=== PATIENT | male | born 2000 | race Caucasian/White ===

== ENCOUNTER 2025-09-13 16:21 | Inpatient (IN) | payer MEDICAID, SELFPAY ==
--- OUTSIDE RECORDS SUMMARY | 2025-09-11 19:44 | XMS_ITS | Encounter Summary ---
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 Final R esult [facility] [address] [place] [address], documented in this encounter Visit Diagnoses Diagnosis Post traumatic stress disorder (PTSD) [F43.10]- Primary Severe oppositional defiant disorder [F91.3] Suicidal ideation documented in this encounter Care Teams Talend Developer Relationship Specialty Start Date End Date None, Pcp, PCP - General 09/11/25 documented as of this encounter
[2025-09-13 16:35] VITALS: BP 136/88; PULSE 67; RESP 18; TEMP 36.9; O2SAT 98
--- OUTSIDE RECORDS SUMMARY | 2025-09-13 17:03 | XMS_ITS | Encounter Summary ---
Author Organization [facility] Address [address] [place] [address] Care Team Providers Care Light Rail Train Operator Name Role Phone None, Pcp MD Primary Care Provider Unavailabl e Encounter Details Date Type Department Care Team (Latest Contact Info) Description 09/11/2025 Travel Social History Tobacco Use Types Packs/Day Years Used Date Smoking Tobacco: Never Alcohol Use Standard Drinks/Week Comments Yes 0 [...] any time in the past 12 m [facility], were you homeless or living in a longterm (including now)? Patient declined 09/11/2025 [facility] Utilities Answer Date Recorded In the past 12 months has th e electric, gas, oil, or water company threatened to shut off services in your [...] fi le documented as of this encounter Plan of Treatment Not on file documented as of this encounter Visit Diagnoses Not on filedocumented in this encounter Care Teams Light Rail Train Operator Relationship Specialty Start Date End Date None, Pcp, PCP - General 09/11/25 documented as of this encounter
--- OUTSIDE RECORDS SUMMARY | 2025-09-13 17:03 | XMS_ITS | Clinical Summary ---
Author Organization [facility] Address [address] [place] [address] Phone Care Team Providers Care Distillery Worker General Name Role Phone Dori Lewis DO Primary Care Provider [phone]- [phone] Social History Tobacco Use Types Packs/Day Years Used Date Smoking Tobacco: Never Assessed Sex and Gender Information Value Date Recorded Sex Assigned at Not on file Legal Sex Male 7:23 PM EDT Gender Identity Not on file Sexual Orientation Not on file Plan of Treatment Health Maintenance Due Date Last Done Comments MMR Vaccines (1 of 1 - Stand ubaldo series) 2002 Varicella Vaccines (1 of 2 - 13+ 2-dose series) 2014 HPV Vaccines (1 - Male 3-dos e series) 2016 DTaP,Tdap,and Td Vaccines (1 - Tdap) 2019 Hepatitis B Vaccines (1 of 3 - 19+ 3-dose series) 2020 Influenza Vaccines (#1) 2025 COVID-19 Vaccine (1 - 2024-2 6 season) 2025 HIB Vaccines Aged Out No longer eligi ble based on patient's age to complete this topic Hepatitis A Vaccines Aged Out No long er eligible based on patient's age to complete this topic IPV Vaccines Aged Out No longer eligi ble based on patient's age to complete this topic Men B Vaccine Aged Out No longer elig ible based on patient's age to complete this topic Meningococcal Vaccine Aged Out No tanya jailyn eligible based on patient's age to complete this topic Pneumococcal Vaccine Aged Out No long er eligible based on patient's age to complete this topic Insurance [facility] [employer] [employer] Care Teams Distillery Worker General Relationship Specialty Start Date End Date Dori Lewis DO PCP - General 11/10/17
--- OUTSIDE RECORDS SUMMARY | 2025-09-13 17:03 | XMS_ITS | Clinical Summary ---
Author Organization [facility] Address [address] [place], [place] [id number] Care Team Providers Care Slusher Operator Name Role Phone None, Pcp Primary Care Provider Unavailabl e Allergies No known active allergies Medications No known medications Encounters Date Type Department Care Team Description 09/11/2025 7:44 PM EST - 09/13/2025 2:00 PM EST Hospital Encounter [facility] Emergency Department [address] [place] [address] Cherelle Wright MD Treut, Peter W, MD Stonely, Wesley, MD Gacioch, MD Kun Cruz Scott, MD Post traumatic stress disorder (PTSD) [F43.10] (Primary Dx); Severe oppositional defiant disorder [F91.3]; Suicidal ideation Discharge Disposition: Psych[facility] Hospital 09/11/2025 Travel from Last 3 Months Family History Relation Status Comments Father Alive Mother Alive Social History Tobacco Use Types Packs/Day Years [...] any time in the past 12 m [facility], were you homeless or living in a long-term (including now)? Patient declined 09/11/2025 [facility] Utilities Answer Date Recorded In the [...] Not on file Not on fi le Last Filed Vital Signs Vital Sign Reading [...] Mass Index 27.37 09/11/2025 7:55 PM EST Plan of Treatment Health Maintenance Due Date Last Done Comments Depression Screening 2013 Hepatitis C Screening 2019 DTaP,Tdap,and Td Vaccines (1 - Tdap) 2020 COVID-19 Vaccine (1 - 2024-2 6 season) 2025 Influenza Vaccine (#1) 2025 Blood Pressure 09/13/2029 09/13/2025 Meningococcal B Vaccines Aged Out No longer eligible based on patient's age to complete this topic Meningococcal Vaccines Aged Out No lo nger eligible based on patient's age to complete this topic Pneumococcal Vaccine Aged Out No long er eligible based on patient's age to complete this topic Procedures Procedure Name Priority Date/Time Associated Diagnosis Comments ECG 12-LEAD STAT 09/13/2025 11:08 AM EST DRUG SCREEN, URINE STAT 09/12/2025 12 :46 PM EST CBC AND DIFFERENTIAL STAT 09/11/2025 8:43 PM EST CBC AND DIFFERENTIAL STAT 09/11/2025 8:43 PM EST TOXICOLOGY SCREEN, BLOOD STAT 09/11/2025 8:43 PM EST COMPREHENSIVE METABOLIC PANEL STAT 09/11/2025 8:43 PM EST from Last 3 Months Results * ECG 12 lead, to be obtained, other indication (09/13/2025 11:08 AM EST) Ventricular Heart Rate 57 BPM EKG BUR MUSE CA Interval 164 ms EKG BUR MUSE QRSD Interval 106 ms EKG B[facility] MUSE QT Interval 394 ms EKG B[facility] MUSE QTC Interval 387 ms EKG BUR MUSE P [place] 43 degrees EKG BUR MUSE R [place] 47 degrees EKG BUR MUSE T Wave [place] 44 degrees EKG BUR MUSE 09/13/2025 11:0 7 AM EST 09/13/2025 12:57 PM EST Narrative EKG BUR MUSE - 09/13/2025 12:57 PM EST SINUS BRADYCARDIA WITH SINUS ARRHYTHMIA BORDERLINE ECG Confirmed by Crispin Rausch ([id number]) on 09/13/2025 12:57:34 PM Procedure Note Crispin Rausch MD - 09/13/2025 SINUS BRADYCARDIA WITH SINUS ARRHYTHMIA BORDERLINE ECG Confirmed by Crispin Rausch ([id number]) on 09/13/2025 12:57:34 PM Yrn Nguyen MD ECG ORDERABLES Final Result EKG BUR MUSE [address] [place] [id number] * (ABNORMAL) Drug Screen, Urine (09/12/2025 12:46 PM EST) Pathologist [facility] Amphetamine Screen, Urine Negative Negative 09/12/2025 1:25 PM EST [facility] Barbiturate Screen, Urine Negative Negative 09/12/2025 1:25 PM EST [facility] Benzodiazepine Screen, Urine Negative Negative 09/12/2025 1:25 PM EST [facility] Buprenorphine Screen, Urine Negative Negative 09/12/2025 1:25 PM [facility] Cannabinoid Screen, Urine Negative Negative 09/12/2025 1:25 PM [facility] Cocaine Metabolite Screen, Urine Positive(A) Negative 09/12/2025 1:25 PM [facility] Fentanyl Screen, Urine Negative Negative 09/12/2025 1:25 PM [facility] Methadone Screen, Urine Negative Negative 09/12/2025 1:25 PM [facility] Opiates Screen, Urine Negative Negative 09/12/2025 1:25 PM [facility] Oxycodone Screen, Urine Negative Negative 09/12/2025 1:25 PM [facility] Propoxyphene Screen, Urine Negative Negative 09/12/2025 1:25 PM [facility] Tricyclics Screen Negative Negative 025 1:25 PM [facility] Comment 09/12/2025 1:25 PM [facility] Comment: The cut-off concentration [...] 12:46 PM EST 09/12/2025 12:49 PM EST us Cherelle Wright MD URINE ORDERABLES Final Resul t [facility] [address] [place] [id number], * CBC and Differential (09/11/2025 8:43 PM EST) WBC 8.16 3.90 - 10.80 K/uL 09/11/2025 8:53 PM [facility] RBC 5.67 4.42 - 5.73 M/uL 09/11/2025 8:53 PM [facility] Hemoglobin 17.0 14.0 - 17.3 g/dL 09/11/2025 8:53 PM [facility] Hematocrit 47.3 40.1 - 51.0 % 09/11/2025 8:53 PM [facility] MCH 30.0 25.6 - 32.2 pg 09/11/2025 8:53 PM [facility] MCHC 35.9 32.0 - 36.0 g/dL 09/11/2025 8:53 PM [facility] MCV 83 83 - 96 fL 09/11/2025 8:53 PM [facility] RDW 11.9 11.5 - 14.0 % 09/11/2025 8:53 PM [facility] Platelet Count 312 154 - 369 K/uL 09/11/2025 8:53 PM [facility] Neutrophil 55.7 % 09/11/2025 8:53 PM [facility] Lymphocyte 28.4 % 09/11/2025 8:53 PM [facility] Monocyte 8.1 % 09/11/2025 8:53 PM [facility] Eosinophil 7.1 % 09/11/2025 8:53 PM [facility] Basophil 0.5 % 09/11/2025 8:53 PM [facility] Immature Granulocyte ([place], Myelo, Promyelocyte) 0.2 % 09/11/2025 8:53 PM [facility] Absolute Neutrophil Count 4.54 1.68 - 7.99 K/uL 09/11/2025 8:53 PM [facility] Absolute Immature Granulocyte ([place], Myelo, Promyelocyte) 0.02 0.00 - 0.09 K/uL 09/11/2025 8:53 PM [facility] Absolute Lymphocyte Count 2.32 0.66 - 4.75 K/uL 09/11/2025 8:53 PM [facility] Absolute Monocyte Count 0.66 0.16 - 1.40 K/uL 09/11/2025 8:53 PM [facility] Absolute Eosinophil Count 0.58 0.00 - 0.60 K/uL 09/11/2025 8:53 PM [facility] Absolute Basophil Count 0.04 0.00 - 0.32 K/uL 09/11/2025 8:53 PM [facility] Blood PERIPHERAL BLOOD SPECIMEN / Unknown Venipuncture / Unknown 09/11/2025 8:43 PM EST 09/11/2025 8:51 PM EST Cherelle Wright MD LAB BLOOD ORDERABLES Final R esult Performing Organization Address [facility]/ZIP Co de Phone Number [facility] [address] [place] [phone], [place] * (ABNORMAL) Toxicology Screen, Blood (09/11/2025 8:43 PM EST) Pathologist [facility] Acetaminophen Result,Blood <5(L) 10 - 30 ug/mL 09/11/2025 9:20 PM [facility] Alcohol <10 <10 mg/dL 09/11/2025 9:20 PM [facility] Salicylate Level, Blood <1 <30 mg/dL 09/11/2025 9:20 PM [facility] Blood PERIPHERAL BLOOD SPECIMEN / Unknown Venipuncture / Unknown 09/11/2025 8:43 PM EST 09/11/2025 8:51 PM EST Cherelle Wright MD LAB BLOOD ORDERABLES Final R [facility] Performing Organization Address [facility] Co de Phone Number [facility] [address] [place] [phone], [place] * (ABNORMAL) Comprehensive Metabolic Panel (09/11/2025 8:43 PM EST) Sodium 139 135 - 146 mmol/L 09/11/2025 9:11 PM [facility] Potassium 3.9 3.4 - 5.2 mmol/L 09/11/2025 9:11 PM [facility] Comment:Samples tested in se [place] may exhibit a higher potassium value than those tested on plasma. Our current range is based on plasma testing. Chloride 102 98 - 110 mmol/L 09/11/2025 9:11 PM [facility] Total CO2/Bicarbonate 27 24 - 32 mmol/L 09/11/2025 9:11 PM [facility] Anion Gap 11 2 - 15 mmol/L 09/11/2025 9:11 PM [facility] BUN 12 7 - 24 mg/dL 09/11/2025 9:11 PM [facility] Creatinine, Blood 0.90 0.60 - 1.30 mg/dL 09/11/2025 9:11 PM [facility] Glucose, Blood 113(H) 50 - 100 mg/dL 09/11/2025 9:11 PM [facility] Calcium 9.4 8.5 - 10.5 mg/dL 09/11/2025 9:11 PM [facility] Total Protein 7.4 6.2 - 8.2 g/dL 09/11/2025 9:11 PM [facility] Albumin, Blood 4.7 3.4 - 5.2 g/dL 09/11/2025 9:11 PM [facility] AST (SGOT) 17 11 - 40 U/L 09/11/2025 9:11 PM [facility] ALT (SGPT) 23 7 - 40 U/L 09/11/2025 9:11 PM [facility] Alkaline Phosphatase 70 40 - 130 U/L 09/11/2025 9:11 PM [facility] Total Bilirubin 0.7 0.2 - 1.2 mg/dL 09/11/2025 9:11 PM [facility] Estimated GFR(CKD-EPI) 122 mL/min/BSA 09/11/2025 9:11 PM [facility] Blood PERIPHERAL BLOOD SPECIMEN / Unknown Venipuncture / Unknown 09/11/2025 8:43 PM EST 09/11/2025 8:51 PM EST us Cherelle Wright MD LAB BLOOD ORDERABLES Final R esult [facility] [address] [place] [address], [place] from Last 3 Months Care Teams Slusher Operator Relationship Specialty Start Date End Date None, PcpMD PCP - General 09/11/25
[2025-09-13 18:11] VITALS: BMI 26.4
[2025-09-13 20:00] VITALS: RESP 18
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
[2025-09-14 08:00] VITALS: BP 123/93; PULSE 63; RESP 18; TEMP 36.8; O2SAT 100
[2025-09-14 08:37] LABS: Alanine Aminotransferase 24 U/L (0-40); Albumin Level 4.8 g/dL (3.5-5.0); Alkaline Phosphatase 65 U/L (39-117); Anion Gap 13 (12-20); Aspartate Amino Transferase 19 U/L (5-37); Blood Urea Nitrogen 10 mg/dL (9-16); Calcium 9.6 mg/dL (8.4-10.2); Carbon Dioxide 28 mmol/L (22-29); Chloride 106 mmol/L (96-108); Cholesterol 157 mg/dL (<200); Creatinine Clr Calc Pharmacy 104.4; Estimated Glomerular Filt Rate > 60; HDL Cholesterol 54 mg/dL (>40); Magnesium 2.3 mg/dL (1.6-2.6); Potassium 4.5 mmol/L (3.3-5.1); Sodium 142 mmol/L (135-145); Total Protein 7.3 g/dL (6.5-8.0); Triglycerides 118 mg/dL (<150)
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
[2025-09-14 08:52] LABS: Free T4 (Free Thyroxine) 1.26 ng/dL (0.71-1.85)
[2025-09-14 09:05] LABS: Folate 8.5 ng/mL (> or = 4.0); Vitamin B12 561 pg/mL (200-900)
--- NOTE | 2025-09-14 10:25 | HO.PSYADMNOT ---
HPI Date of Service: 09/14/25 Chief Complaint: PTSD, polysubstance abuse alcohol,cocaine,cannabis Sources of Information: patient interviewed and chart reviewed HPI Subjective Notes: [place] Warning and Conditional Voluntary Healthcare Proxy: No Guardianship: No Medical Problems Affecting Mental Status: No Narrative: Patient is a 25-year-old male who was sectioned 12B from [facility] yesterday for suicide ideation. On interview with his provider, patient states that on 09/11/2025 she was sitting in the car while her girlfriend was driving and he noticed new and old cutting kemp to her forearm. He mentioned what he noticed to his girlfriend as she has history of mental illness with self-injurious behaviors. She became irritable and started driving erratically. He cracked his the open so she can slow down the car for him to come out. She pulled over in the parking lot and as they were talking, he found that she had an affair with another individual. Therefore, he told her he will walk away from the relationship. His girlfriend immediately called the police and told them the patient tried to commit suicide by opening his door while she was driving. The police also found out the patient failed to appear in court for a misdemeanor charge for a stolen property. The patient denies psychiatric or medical history. He denies history of taking psychotropic medications. He states that his sleep and appetite is usually adequate. He currently denies anxiety or depression. He denies SI/HI/AVH. He has been using cocaine intranasally once a month for the past 1-2 years. He drinks 1-2 beers every other weekend. He denies caffeine intake. He denies other drug use. Tox screen positive for cocaine. His goal for this admission is to get out and continue with my life. Patient seen today 08:45. Past Psychiatric History: Denies h/o mental illness or IPLOC. Denies h/o taking psychotropic medications. Denies h/o SIB or SA. No PCP. Medical Evaluation Reviewed: Yes Diagnostics Vital Signs (24Hr): Vital Signs - 24 hr 09/13/25 16:35 09/13/25 20:00 Temperature 98.4 F Pulse Rate 67 Respiratory Rate 18 18 Blood Pressure 136/88 Pulse Oximetry 98 Oxygen Delivery Method Room Air BMI result Body Mass Index 26.4 Labs 09/14/25 08:03 Labs: Laboratory Results - last 48 hr 09/14/25 08:03 Sodium 142 Potassium 4.5 Chloride 106 Carbon Dioxide 28 Anion Gap 13 BUN 10 Creatinine 1.02 Estim Creat Clear Calc 104.4 Estimated GFR > 60 Random Glucose 92 Estimat Average Glucose 91 Hemoglobin A1c % 4.8 Calcium 9.6 Magnesium 2.3 Total Bilirubin 0.8 AST 19 ALT 24 Alkaline Phosphatase 65 Total Protein 7.3 Albumin 4.8 Triglycerides 118 Cholesterol 157 LDL Cholesterol, Calc 80 HDL Cholesterol 54 Vitamin B12 561 Folate 8.5 Free T4 1.26 Meds/Allergies Allergies Allergies Allergy/AdvReac Type Severity Reaction Status Date / Time No Known Allergies Allergy Verified 09/13/25 17:46 Mental Status Exam Mental Status Exam Narrative: Appearance: Casually dressed, adequate hygiene and grooming Behavior: Calm and cooperative throughout the interview. Eye contact is appropriate, and there are no signs of psychomotor agitation or retardation Speech: Normal volume and prosody Thought process: Logical and goal-directed Thought content: Future oriented no self-harming thoughts Mood: Euthymic Affect: Mood-congruent, constricted SI: Denies HI: Denies VH/AH: None Delusions: None Insight/judgment: Impaired insight and judgment Memory/cog: Alert, oriented x 4. grossly intact to conversational testing Assessment & Plan Assessment & Plan (1) Anxiety: Status: Acute Code(s): F41.9 - Anxiety disorder, unspecified (2) Suicide ideation: Status: Acute Code(s): R45.851 - Suicidal ideations Plan Patient is a 25-year-old male who was sectioned 12B from [facility] yesterday for suicide ideation. On interview with his provider, patient states that on 09/11/2025 she was sitting in the car while her girlfriend was driving and he noticed new and old cutting kemp to her forearm. He mentioned what he noticed to his girlfriend as she has history of mental illness with self-injurious behaviors. She became irritable and started driving erratically. He cracked his the open so she can slow down the car for him to come out. She pulled over in the parking lot and as they were talking, he found that she had an affair with another individual. Therefore, he told her he will walk away from the relationship. His girlfriend immediately called the police and told them the patient tried to commit suicide by opening his door while she was driving. The police also found out the patient failed to appear in court for a misdemeanor charge for a stolen property. The patient denies psychiatric or medical history. He denies history of taking psychotropic medications. He states that his sleep and appetite is usually adequate. He currently denies anxiety or depression. He denies SI/HI/AVH. He has been using cocaine intranasally once a month for the past 1-2 years. He drinks 1-2 beers every other weekend. He denies caffeine intake. He denies other drug use. He is not interested in taking medications. Tox screen positive for cocaine. His goal for this admission is to get out and continue with my life. Formulation/Clinical reasoning: Anxiety and cocaine use disorder: Cocaine use may result in anxiety and suicide ideation. No current SI/HI/AVH. Patient is not interested in medication treatment at this time. Encouraged to take medications as needed. Addiction consult in place. Verbalized understanding and agreed with the plan. Plan Admit to M5. CV 15 minutes check. Diagnostics as needed. Collateral contact. Continue remainder of regime. Encouraged full milieu. Discharge planning. Patient educated on: diagnosis, medication risk/benefits and therapeutic strategies Reason for continued inpatient stay Substantial Risk for: harm to self and rapid decompensation Statement Statement: I have reviewed the history and physical and performed a pertinent examination on my patient. No changes have occurred unless specified. If the History and Physical was not performed prior to admission, the Hospitalist's service will be consulted for completing the admission physical. Time Spent With Patient Time: Total time managing care of this patient today ____ minutes.
--- NOTE | 2025-09-14 16:48 | MHC.RECOVRN ---
Consult placed to Addiction Medicine for pt with reported recreational cocaine use.? Pt states he uses cocaine ?maybe once a month if that?.He also reports drinking alcohol ?mainly on the weekend and like a beer or two?. He denies his alcohol and cocaine use are problematic or the need for support or resources regarding his use.? Pt was educated on the current drug supply, cutting agents used, and was provided some safer use strategies to minimize his risk if use continues.? Pt states he has a friend that works at ?[employer]? and states he will be attending their evening program once he is discharged from ?to learn better coping skills?? Pt denied questions or concerns and was provided contact information for ACS Team if needed.?
[2025-09-14 19:50] VITALS: BP 142/83; PULSE 103; RESP 16; TEMP 37.1; O2SAT 99
--- NOTE | 2025-09-14 21:26 | PC.NURSE ---
Pt submitted a Three Day Notice on Friday09/14/2025 up on Friday09/20/2025.
[2025-09-15 08:00] VITALS: BP 129/84; PULSE 82; RESP 16; TEMP 36.8; O2SAT 99
--- NOTE | 2025-09-15 15:24 | P.PNPSI_ITS ---
Subjective Subjective Date of Service: 09/15/25 Reason For Visit: PTSD, polysubstance abuse alcohol,cocaine,cannabis Subjective Notes: 3 Day Healthcare Proxy: No Guardianship: No Medical Problems Affecting Mental Status: No Interim History: Medical record and nursing notes reviewed; case discussed during rounds with team/nursing staff, and met with patient for supportive therapy/psychoeducation, as well as medication management. Patient mostly isolated in room, out to making phone call, has no scheduled meds as patient is not interesting taking meds. Patient asks if he can be discharged tomorrow. Will discuss with team in the AM. He has a 3-day notice. No behavior. Denies SI/SIB/HI/AVH. Medication Compliance: No (N/A. NSM) Attending Groups: No Review of Systems Acute medical concerns: No Medical Review of Systems: unchanged Review of Systems Review of Systems Constitutional: Denies fatigue and Denies fever(s) Cardiovascular: Denies chest pain and Denies dyspnea Respiratory: Denies dyspnea Gastrointestinal: Denies abdominal pain Psychiatric: denies suicidal ideation Endocrine: Denies fatigue Mental Status Exam Mental Status Exam Narrative: Appearance: Casually dressed, adequate hygiene and grooming Behavior: Calm and cooperative throughout the interview but isolated to self. Eye contact is appropriate, and there are no signs of psychomotor agitation or retardation Speech: Normal volume and prosody Thought process: Logical and goal-directed Thought content: Future oriented no self-harming thoughts Mood: Euthymic Affect: Mood-congruent, constricted SI: Denies HI: Denies VH/AH: None Delusions: None Insight/judgment: improved insight and judgment Memory/cog: Alert, oriented x 4. grossly intact to conversational testing Diagnostics Vital Signs (24Hr): Vital Signs - 24 hr 09/14/25 19:50 09/15/25 08:00 Temperature 98.8 F 98.2 F Pulse Rate 103 H 82 Respiratory Rate 16 16 Blood Pressure 142/83 H 129/84 Pulse Oximetry 99 99 Oxygen Delivery Method Room Air Room Air BMI result Body Mass Index 26.4 Labs 09/14/25 08:03 Labs: Laboratory Results - last 48 hr 09/14/25 08:03 Sodium 142 Potassium 4.5 Chloride 106 Carbon Dioxide 28 Anion Gap 13 BUN 10 Creatinine 1.02 Estim Creat Clear Calc 104.4 Estimated GFR > 60 Random Glucose 92 Estimat Average Glucose 91 Hemoglobin A1c % 4.8 Calcium 9.6 Magnesium 2.3 Total Bilirubin 0.8 AST 19 ALT 24 Alkaline Phosphatase 65 Total Protein 7.3 Albumin 4.8 Triglycerides 118 Cholesterol 157 LDL Cholesterol, Calc 80 HDL Cholesterol 54 Vitamin B12 561 Folate 8.5 Free T4 1.26 Medications Medications Current Medications Acetaminophen (Acetaminophen 325 Mg Tablet) 650 mg PO Q6H PRN PRN Reason: Headache/Pain, Scale 1-10 Al Hydroxide/Mg Hydroxide (Magnesium Hydrox/Alum Hydrox 30 Ml Oral.Susp) 30 ml PO Q6H PRN PRN Reason: Heartburn/Nausea Hydroxyzine HCl (Hydroxyzine Hcl 25 Mg Tablet) 25 mg PO Q6H PRN PRN Reason: mild anxiety Last Admin: 09/13/25 18:09 Dose: 25 mg Magnesium Hydroxide (Milk Of Magnesia 30 Ml Oral.Susp) 30 ml PO DAILY PRN PRN Reason: Constipation Nicotine Polacrilex (Nicotine Polacrilex 2 Mg Gum) 4 mg BUCCAL Q2H PRN PRN Reason: Nicotine Cravings Trazodone HCl (Trazodone Hcl 50 Mg Tablet) 50 mg PO BEDTIME MRX1 PRN PRN Reason: Insomnia Allergies Allergies Allergy/AdvReac Type Severity Reaction Status Date / Time No Known Allergies Allergy Verified 09/13/25 17:46 Assessment & Plan Assessment & Plan (1) Anxiety: Status: Acute Code(s): F41.9 - Anxiety disorder, unspecified (2) Suicide ideation: Status: Acute Code(s): R45.851 - Suicidal ideations Plan Patient is a 25-year-old male who was sectioned 12B from [facility] yesterday for suicide ideation. On interview with his provider, patient states that on 09/11/2025 she was sitting in the car while her girlfriend was driving and he noticed new and old cutting kemp to her forearm. He mentioned what he noticed to his girlfriend as she has history of mental illness with self-injurious behaviors. She became irritable and started driving erratically. He cracked his the open so she can slow down the car for him to come out. She pulled over in the parking lot and as they were talking, he found that she had an affair with another individual. Therefore, he told her he will walk away from the relationship. His girlfriend immediately called the police and told them the patient tried to commit suicide by opening his door while she was driving. The police also found out the patient failed to appear in court for a misdemeanor charge for a stolen property. The patient denies psychiatric or medical history. He denies history of taking psychotropic medications. He states that his sleep and appetite is usually adequate. He currently denies anxiety or depression. He denies SI/HI/AVH. He has been using cocaine intranasally once a month for the past 1-2 years. He drinks 1-2 beers every other weekend. He denies caffeine intake. He denies other drug use. He is not interested in taking medications. Tox screen positive for cocaine. His goal for this admission is to get out and continue with my life. Formulation/Clinical reasoning: Anxiety and cocaine use disorder: Cocaine use may result in anxiety and suicide ideation. No current SI/HI/AVH. Patient is not interested in medication treatment at this time. Encouraged to take medications as needed. Addiction consult in place. Verbalized understanding and agreed with the plan. 09/15/25: Patient mostly isolated in room, out to making phone call, has no scheduled meds as patient is not interesting taking meds. Patient asks if he can be discharged tomorrow. Will discuss with team in the AM. He has a 3-day notice. No behavior. Denies SI/SIB/HI/AVH. Plan Admit to M5. 3-day notice. 15 minutes check. Diagnostics as needed. Collateral contact. Continue remainder of regime: PRN only. Encouraged full milieu. Discharge planning. Patient educated on: diagnosis, medication risk/benefits and therapeutic strategies Informed Consent: understands and further education needed Reason for continued inpatient stay Substantial Risk for: med/psych decompensation Time Spent With Patient Time: Total time managing care of this patient today ____ minutes.
[2025-09-15 20:00] VITALS: BP 118/73; PULSE 86; RESP 20; TEMP 37.2; O2SAT 98
[2025-09-16 08:00] VITALS: BP 112/60; PULSE 57; RESP 18; TEMP 36.5; O2SAT 98
--- NOTE | 2025-09-16 09:26 | P.PNPSI_ITS ---
Subjective Subjective Date of Service: 09/16/25 Reason For Visit: PTSD, polysubstance abuse alcohol,cocaine,cannabis Interim History: Met with patient; discussed with team; reviewed chart Patient remains in good behavioral and impulse control, polite and appropriate with peers and with this keno writer / runner. Patient maintains that he was never suicidal and never has been throughout his life. He reiterates that his girlfriend made up a lot of stuff because they have problems in their relationship and she has reactive. She was going to come visit him today but he asked her not to. Patient remains not wanting any medication or any treatment of any kind but just wants to discharge. Patient acknowledges that he is made plenty of bad choices in his life and that he struggles with impulsivity but reiterates he would never hurt himself and has never wanted to in his life. Regarding substance abuse he says he is interested in a AA/NA program at [facility]. Patient has a 3 day notice. Patient says that his long-time family friend, mother darnell Srivastava is willing to pick him up if he can be discharged today which he is asking for. Patient says he has animals at home that need attending. Senior Foreman spoke with patient's mom Jessenia who shared that patient has a lifetime of getting into trouble including crimes and says is a warrant out for his arrest; she says she has no idea when he is telling the truth and does not try to figure out anymore and while she loves him, at this point he is not allowed in their home. However she also shared that she has never known him to be a danger to himself or others that he has never hurt anyone to her knowledge and has never ever been suicidal. She says she thinks he is narcissistic has always thought very highly of himself which she thinks is quite protective factor and part of the reason he never has any self-harm. She wishes he would get help but says he never seems to be willing. She concurs that he has pets at home that need taking care of. Mental Status Exam Mental Status Exam Narrative: Pt is alert and oriented; behavior is cooperative, polite and calm; patient is not in distress; dressed in hospital attire with adequate hygiene; mood is described as good and affect congruent; eye contact appropriate; Speech is normal rate, volume and prosody and not pressured; no psychomotor agitation/retardation present; thought process is organized and goal directed; Thought content is on tx; otherwise pertinent to relevant topics and without any delusional content, paranoid ideations or grandiosity; denies any SI/HI. Denies AVH and there is no evidence of perceptual disturbance. Patients insight and judgment appear intact. Diagnostics Vital Signs (24Hr): Vital Signs - 24 hr 09/15/25 20:00 09/16/25 08:00 Temperature 99 F 97.7 F Pulse Rate 86 57 Respiratory Rate 20 18 Blood Pressure 118/73 112/60 Pulse Oximetry 98 98 Oxygen Delivery Method Room Air Room Air BMI result Body Mass Index 26.4 Labs 09/14/25 08:03 Medications Medications Current Medications Acetaminophen (Acetaminophen 325 Mg Tablet) 650 mg PO Q6H PRN PRN Reason: Headache/Pain, Scale 1-10 Al Hydroxide/Mg Hydroxide (Magnesium Hydrox/Alum Hydrox 30 Ml Oral.Susp) 30 ml PO Q6H PRN PRN Reason: Heartburn/Nausea Hydroxyzine HCl (Hydroxyzine Hcl 25 Mg Tablet) 25 mg PO Q6H PRN PRN Reason: mild anxiety Last Admin: 09/13/25 18:09 Dose: 25 mg Magnesium Hydroxide (Milk Of Magnesia 30 Ml Oral.Susp) 30 ml PO DAILY PRN PRN Reason: Constipation Nicotine Polacrilex (Nicotine Polacrilex 2 Mg Gum) 4 mg BUCCAL Q2H PRN PRN Reason: Nicotine Cravings Trazodone HCl (Trazodone Hcl 50 Mg Tablet) 50 mg PO BEDTIME MRX1 PRN PRN Reason: Insomnia Last Admin: 09/15/25 22:41 Dose: 50 mg Allergies Allergies Allergy/AdvReac Type Severity Reaction Status Date / Time No Known Allergies Allergy Verified 09/13/25 17:46 Assessment & Plan Assessment & Plan (1) Adjustment disorder with mixed disturbance of emotions and conduct in remission: Status: Acute Code(s): F43.25 - Adjustment disorder with mixed disturbance of emotions and conduct (2) Antisocial personality disorder: Status: Acute Code(s): F60.2 - Antisocial personality disorder (3) Cocaine use disorder: Status: Acute Code(s): F14.90 - Cocaine use, unspecified, uncomplicated Plan Patient is a 25-year-old male who was sectioned 12B from [facility] yesterday for suicide ideation. On interview with his provider, patient states that on 09/11/2025 she was sitting in the car while her girlfriend was driving and he noticed new and old cutting kemp to her forearm. He mentioned what he noticed to his girlfriend as she has history of mental illness with self-injurious behaviors. She became irritable and started driving erratically. He cracked his the open so she can slow down the car for him to come out. She pulled over in the parking lot and as they were talking, he found that she had an affair with another individual. Therefore, he told her he will walk away from the relationship. His girlfriend immediately called the police and told them the patient tried to commit suicide by opening his door while she was driving. The police also found out the patient failed to appear in court for a misdemeanor charge for a stolen property. The patient denies psychiatric or medical history. He denies history of taking psychotropic medications. He states that his sleep and appetite is usually adequate. He currently denies anxiety or depression. He denies SI/HI/AVH. He has been using cocaine intranasally once a month for the past 1-2 years. He drinks 1-2 beers every other weekend. He denies caffeine intake. He denies other drug use. He is not interested in taking medications. Tox screen positive for cocaine. His goal for this admission is to get out and continue with my life. Formulation/Clinical reasoning: Anxiety and cocaine use disorder: Cocaine use may result in anxiety and suicide ideation. No current SI/HI/AVH. Patient is not interested in medication treatment at this time. Encouraged to take medications as needed. Addiction consult in place. Verbalized understanding and agreed with the plan. 09/15/25: Patient mostly isolated in room, out to making phone call, has no scheduled meds as patient is not interesting taking meds. Patient asks if he can be discharged tomorrow. Will discuss with team in the AM. He has a 3-day notice. No behavior. Denies SI/SIB/HI/AVH. 09/16 Patient remains in good behavioral and impulse control, polite and appropriate with peers and with this keno writer / runner. Patient maintains that he was never suicidal and never has been throughout his life. He reiterates that his girlfriend made up a lot of stuff because they have problems in their relationship and she has reactive. She was going to come visit him today but he asked her not to. Patient remains not wanting any medication or any treatment of any kind but just wants to discharge. Patient acknowledges that he is made plenty of bad choices in his life and that he struggles with impulsivity but reiterates he would never hurt himself and has never wanted to in his life. Regarding substance abuse he says he is interested in a AA/NA program at [facility]. Patient has a 3 day notice. Patient says that his long-time family friend, mother darnell Srivastava is willing to pick him up if he can be discharged today which he is asking for. Patient says he has animals at home that need attending. Senior Foreman spoke with patient's mom Jessenia who shared that patient has a lifetime of getting into trouble including crimes and says is a warrant out for his arrest; she says she has no idea when he is telling the truth and does not try to figure out anymore and while she loves him, at this point he is not allowed in their home. However she also shared that she has never known him to be a danger to himself or others that he has never hurt anyone to her knowledge and has never ever been suicidal. She says she thinks he is narcissistic has always thought very highly of himself which she thinks is quite protective factor and part of the reason he never has any self-harm. She wishes he would get help but says he never seems to be willing. She concurs that he has pets at home that need taking care of. Regarding Substance abuse treatment and risks discussed with patient who at this time patient declines MAT or help with outpt treatment options including programs; instead patient is choosing to work out sobriety on own and says he plans to attend an AA/NA group at his [facility] Impression: Senior Foreman concludes that whatever happened that landed patient in the hospital has since resolved. It is not going to be possible to really know what happened but given the patient's history, it is unlikely to make much of a difference. Patient does not want treatment. He just wants to discharge. Patient has a 3 day notice signed. He has remained in good behavioral and impulse control and appropriate with peers and staff and keno writer / runner can not testify that he is an imminent harm to self or others or unable to take care himself in the community. Patient will very likely continue to engage in unhealthy behaviors however this is a chronic problem that patient is not interested in discussing or addressing at this time and will not resolve with longer stay on inpatient unit. As mentioned, patient is not in imminent risk for harm to self or others and his request for discharge honored. Plan Admit to M5. 3-day notice. 15 minutes check. Diagnostics as needed. Collateral contact. Continue remainder of regime: PRN only. Encouraged full milieu. Discharge planning. Patient educated on: diagnosis, medication risk/benefits, substance abuse and therapeutic strategies Informed Consent: understands Reason for continued inpatient stay Substantial Risk for: stable for discharge Time Spent With Patient Time: Total time managing care of this patient today ____ minutes.
--- NOTE | 2025-09-16 10:57 | P.DS_ITS ---
DS: Providers Provider Date of admission: 09/13/25 16:21 Date of discharge: 09/16/25 Primary care physician: None Physician Admitting clinician: Israel Pérez Consults: 09/13/25 17:46 Consult to Hospitalist Routine Comment: Consulting Provider: [facility] [place] Hospitalists Reason For Exam: Admission Physical 09/13/25 18:02 Addiction Medicine Provider Routine Consulting Provider: Addiction Covering Reason for consultation: recreational cocaine use Attending physician on discharge: Edu Guzman DS: Diagnosis Discharge Diagnosis (1) Anxiety: Status: Acute (2) Suicide ideation: Status: Acute Mental Status Exam Mental Status Exam Narrative: Pt is alert and oriented; behavior is cooperative, polite and calm; patient is not in distress; dressed in hospital attire with adequate hygiene; mood is described as good and affect congruent; eye contact appropriate; Speech is normal rate, volume and prosody and not pressured; no psychomotor agitation/retardation present; thought process is organized and goal directed; Thought content is on tx; otherwise pertinent to relevant topics and without any delusional content, paranoid ideations or grandiosity; denies any SI/HI. Denies AVH and there is no evidence of perceptual disturbance. Patients insight and judgment appear intact. Data Data Completed and Pending Completed studies during hospitalization [Text1]: 09/14/25 08:03 Sodium 142 Potassium 4.5 Chloride 106 Carbon Dioxide 28 Anion Gap 13 BUN 10 Creatinine 1.02 Estim Creat Clear Calc 104.4 Estimated GFR > 60 Random Glucose 92 Estimat Average Glucose 91 Hemoglobin A1c % 4.8 Calcium 9.6 Magnesium 2.3 Total Bilirubin 0.8 AST 19 ALT 24 Alkaline Phosphatase 65 Total Protein 7.3 Albumin 4.8 Triglycerides 118 Cholesterol 157 LDL Cholesterol, Calc 80 HDL Cholesterol 54 Vitamin B12 561 Folate 8.5 Free T4 1.26 DS: Summary Hospital Course Hospital Course: Patient is a 25-year-old male who was sectioned 12B from [facility] yesterday for suicide ideation. On interview with his provider, patient states that on 09/11/2025 she was sitting in the car while her girlfriend was driving and he noticed new and old cutting kemp to her forearm. He mentioned what he noticed to his girlfriend as she has history of mental illness with self-injurious behaviors. She became irritable and started driving erratically. He cracked his the open so she can slow down the car for him to come out. She pulled over in the parking lot and as they were talking, he found that she had an affair with another individual. Therefore, he told her he will walk away from the relationship. His girlfriend immediately called the police and told them the patient tried to commit suicide by opening his door while she was driving. The police also found out the patient failed to appear in court for a misdemeanor charge for a stolen property. The patient denies psychiatric or medical history. He denies history of taking psychotropic medications. He states that his sleep and appetite is usually adequate. He currently denies anxiety or depression. He denies SI/HI/AVH. He has been using cocaine intranasally once a month for the past 1-2 years. He drinks 1-2 beers every other weekend. He denies caffeine intake. He denies other drug use. He is not interested in taking medications. Tox screen positive for cocaine. His goal for this admission is to get out and continue with my life. Hospital course/ Formulation/Clinical reasoning: Anxiety and cocaine use disorder: Cocaine use may result in anxiety and suicide ideation. No current SI/HI/AVH. Patient is not interested in medication treatment at this time. Encouraged to take medications as needed. Addiction consult in place. Verbalized understanding and agreed with the plan. 09/15/25: Patient mostly isolated in room, out to making phone call, has no scheduled meds as patient is not interesting taking meds. Patient asks if he can be discharged tomorrow. Will discuss with team in the AM. He has a 3-day notice. No behavior. Denies SI/SIB/HI/AVH. 09/16 Patient remains in good behavioral and impulse control, polite and appropriate with peers and with this field underwriter. Patient maintains that he was never suicidal and never has been throughout his life. He reiterates that his girlfriend made up a lot of stuff because they have problems in their relationship and she has reactive. She was going to come visit him today but he asked her not to. Patient remains not wanting any medication or any treatment of any kind but just wants to discharge. Patient acknowledges that he is made plenty of bad choices in his life and that he struggles with impulsivity but reiterates he would never hurt himself and has never wanted to in his life. Regarding substance abuse he says he is interested in a AA/NA program at his mu-[facility]. Patient has a 3 day notice. Patient says that his long-time family friend, mother darnell Srivastava is willing to pick him up if he can be discharged today which he is asking for. Patient says he has animals at home that need attending. Ground Systems Engineer spoke with patient's mom Jessenia who shared that patient has a lifetime of getting into trouble including crimes and says is a warrant out for his arrest; she says she has no idea when he is telling the truth and does not try to figure out anymore and while she loves him, at this point he is not allowed in their home. However she also shared that she has never known him to be a danger to himself or others that he has never hurt anyone to her knowledge and has never ever been suicidal. She says she thinks he is narcissistic has always thought very highly of himself which she thinks is quite protective factor and part of the reason he never has any self-harm. She wishes he would get help but says he never seems to be willing. She concurs that he has pets at home that need taking care of. Regarding Substance abuse treatment and risks discussed with patient who at this time patient declines MAT or help with outpt treatment options including programs; instead patient is choosing to work out sobriety on own and says he plans to attend an AA/NA group at his mu-ism Impression: Ground Systems Engineer concludes that whatever happened that landed patient in the hospital has since resolved. It is not going to be possible to really know what happened but given the patient's history, it is unlikely to make much of a difference. Patient does not want treatment. He just wants to discharge. Patient has a 3 day notice signed. He has remained in good behavioral and impulse control and appropriate with peers and staff and field underwriter can not testify that he is an imminent harm to self or others or unable to take care himself in the community. Patient will very likely continue to engage in unhealthy behaviors however this is a chronic problem that patient is not interested in discussing or addressing at this time and will not resolve with longer stay on inpatient unit. As mentioned, patient is not in imminent risk for harm to self or others and his request for discharge honored. Status at Discharge Functional status at discharge: independent ambulation Overall status at discharge: patient is back to baseline Time Spent with Patient Time attestation: Total time managing care of this patient today _50___ minutes. Specific discharge activities: Reviewed chart; gathered collateral; met with patient; discussed with team; charting Discharge Plan Discharge Anticipated Discharge Date/Time: 09/16/25 10:57 Patient Disposition: Home, Self-Care Discharge Diagnosis: adjustment disorder with disturbance of mood and behaviors in full remission Referrals: Physician,None [Primary Care Provider, Medical] - 1 Week Discharge Orders: Discharge Order (Routine); Ordered 09/16/25 Ordered By: Edu Guzman Diet: Regular diet Activity on Discharge: As tolerated Stand Alone Forms: Patient Portal Discharge page, Community Support Print Language: Divehi Care Plan Goals: Maintain mood and safe behaviors Take medications as prescribed Continue to pursue sobriety Practice coping skills Continue with outpatient providers and reach out to them as needed Health Concerns: Mood stability and behaviors Sobriety Plan of Treatment: Consider working with a psychiatric provider to address issues Pursue tx for sobriety Assessment: Risk assessment at time of discharge:? Patient was interviewed prior to discharge and found to be fully oriented and without any SI or HI. Patient is not in imminent risk of harm to self or others and has a safety plan that includes presenting to the closest ER or calling 911 if feeling unsafe.? Patient has been observed closely by nursing and unit staff throughout admission; patient has not engaged in any behaviors that suggest dangerousness to self or others and has demonstrated appropriate behaviors and impulse control Discharge Date/Time: 09/16/25 11:45
== END 2025-09-16 11:45 | disposition home or self-care (01) | DRG 755 ==
PROVIDERS: Clinical Nurse Specialist Psychiatric/Mental Health, Adult; Admitting Provider Psychiatry & Neurology Psychiatry; Visit Provider Psychiatry & Neurology Psychiatry
DX: F43.25 Adjustment disorder with mixed disturbance of emotions and conduct (principal); R45.851 Suicidal ideations; F19.10 Other psychoactive substance abuse, uncomplicated; Z87.891 Personal history of nicotine dependence
CPT/HCPCS: 36415; 80053; 80061; 82607; 82746; 83036; 83735; 84439

== ENCOUNTER → 2025-09-13 16:21 | Outpatient (BNV) | payer MEDICAID, SELFPAY | PROVIDERS: Admitting Provider Psychiatry & Neurology Psychiatry; Visit Provider Nurse Practitioner Family | DX: R45.851 Suicidal ideations (principal) | CPT/HCPCS: 99221 ==

== ENCOUNTER → 2025-09-13 16:21 | Outpatient (BNV) | payer MEDICAID, SELFPAY | PROVIDERS: Admitting Provider Psychiatry & Neurology Psychiatry; Visit Provider Nurse Practitioner Family | DX: F60.2 Antisocial personality disorder (principal); F43.25 Adjustment disorder with mixed disturbance of emotions and conduct; F14.90 Cocaine use, unspecified, uncomplicated; F41.9 Anxiety disorder, unspecified; R45.851 Suicidal ideations | CPT/HCPCS: 90792; 99232; 99239; 99499 ==